=== PATIENT | male | born 1965 | race Caucasian/White ===

== ENCOUNTER → 2017-07-05 | Outpatient (REF) | payer OTHER | LOC: M SMT 13:11 | PROVIDERS: ATTEND Nurse Practitioner Women's Health | DX: N40.0 Benign prostatic hyperplasia without lower urinary tract symptoms (principal) ==

== ENCOUNTER 2018-10-27 12:35 | Emergency (ER) | payer OTHER ==
[~2018-10-27] VITALS: Ht 185.4 cm; Wt 109.1 kg
[2018-10-27] MEDS ORDERED: ATOR40TA75 (12:48)
[2018-10-27] MEDS ORDERED: LEVO175T2 (12:48)
[2018-10-27] MEDS ORDERED: TRES1INJ (12:48)
[2018-10-27] MEDS ORDERED: GABA-843 (12:48)
[2018-10-27] MEDS ORDERED: JARD1TAB3 (12:48)
[2018-10-27] MEDS ORDERED: ONDANSETRON 4MG/2ML VIAL (J2405) IV ONE (14:30)
[2018-10-27] MEDS ORDERED: NS 1,000 ML IV ONE (14:30)
[2018-10-27] MEDS ORDERED: KETOROLAC 30 MG/ML VIAL (J1885) IV ONE (14:30)
[2018-10-27 15:31] LABS: BASO % 0.8 % (0.0-1.0); EOS % 0.8 % (0.0-3.0); HEMATOCRIT 48.4 % (42.0-52.0); LYMPH # 0.8 10^3/uL (1.5-4.5); LYMPH % 16.5 % (24.0-44.0); MEAN CORPUSCULAR HEMOGLOBIN 29.1 pg (27.0-33.0); MEAN CORPUSCULAR HGB CONC 33.1 g/dl (32.0-36.5); MONO # 0.6 10^3/uL (0.0-0.8); NEUTROPHILS # 3.6 10^3/uL (1.8-7.7); NEUTROPHILS % 70.3 % (36.0-66.0); PLATELET COUNT, AUTOMATED 204 10^3/uL (150-450); WHITE BLOOD COUNT 5.1 10^3/uL (4.0-10.0)
[2018-10-27 15:50] LABS: ALBUMIN 3.7 GM/DL (3.2-5.2); ALT/SGPT 45 U/L (12-78); BILIRUBIN,DIRECT 0.2 MG/DL (0.0-0.2); BILIRUBIN,TOTAL 0.8 MG/DL (0.2-1.0); BLOOD UREA NITROGEN 15 MG/DL (7-18); CALCIUM LEVEL 8.2 MG/DL (8.5-10.1); CARBON DIOXIDE LEVEL 28 MEQ/L (21-32); CHLORIDE LEVEL 105 MEQ/L (98-107); GLOMERULAR FILTRATION RATE > 60.0 (>56); GLUCOSE, FASTING 202 MG/DL (70-100); LIPASE 70 U/L (73-393); POTASSIUM SERUM 4.3 MEQ/L (3.5-5.1); SODIUM LEVEL 138 MEQ/L (136-145); TOTAL PROTEIN 7.4 GM/DL (6.4-8.2)
[2018-10-27 15:58] LABS: INFLUENZA A AMPLIFICATION POSITIVE (NEGATIVE); INFLUENZA B AMPLIFICATION NEGATIVE (NEGATIVE)
[2018-10-27] MEDS ORDERED: LEVA750T7 PO (16:13)
[2018-10-27] MEDS ORDERED: OSEL75CA PO (16:13)
[2018-10-27] MEDS ORDERED: OSELTAMIVIR PHOSPHATE 75 MG CAP (TAMIFLU) PO ONE (16:15)
[2018-10-27] MEDS ORDERED: LevoFLOXacin 750 MG TABLET PO ONE (16:15)
[2018-10-27 16:19] VITALS: BP 119/74
--- NOTE | 2018-10-28 08:22 | REP ---
CHEST TWO VIEWS: Two views of the chest are performed. There appears to be mild streaky infiltrate in the lingula. The right lung is clear. Heart is normal in size. Mediastinal silhouette is unremarkable. IMPRESSION: Mild lingular infiltrate. Electronically Signed by Ike Church MD 10/28/2018 10:35 P
== END 2018-10-27 16:29 | disposition home or self-care (01) ==
LOC: M ED 12:35
DX: J09.X9 Influenza due to identified novel influenza A virus with other manifestations (principal); E11.9 Type 2 diabetes mellitus without complications; Z79.890 Hormone replacement therapy; Z79.899 Other long term (current) drug therapy
CPT/HCPCS: 71046; 80048; 80076; 81001; 83690; 85025; 87502; 96374; 96375; 99284; J1885; J2405

== ENCOUNTER 2019-03-13 17:21 | Emergency (ER) | payer OTHER ==
[~2019-03-13] VITALS: Ht 185.4 cm; Wt 109.1 kg
[~2019-03-13 17:21] MED LIST: ATOR40TA75; GABA-843; JARD1TAB3; LEVA750T7 PO; LEVO175T2; OSEL75CA PO; TRES1INJ
[2019-03-13] MEDS ORDERED: OMEP-221 PO (17:35)
[2019-03-13] MEDS ORDERED: VITA500045 PO (17:35)
[2019-03-13] MEDS ORDERED: ASPI-523 PO (17:35)
[2019-03-13] MEDS ORDERED: IBUPROFEN 600 MG TAB PO ONE (18:30)
[2019-03-13] MEDS ORDERED: ONDANSETRON 4 MG ORAL DISINTEGRATING TAB (Q0162 PER 1MG) PO ONE (18:30)
[2019-03-13] MEDS ORDERED: CYCL10TA PO (19:00)
[2019-03-13] MEDS ORDERED: IBUP-1022 PO (19:00)
[2019-03-13] MEDS ORDERED: CYCLOBENZAPRINE 10 MG TAB PO ONE (19:00)
--- NOTE | 2019-03-13 19:02 | REP ---
Clinical: Trauma. Technique: Axial noncontrast images through the thoracic spine with coronal and sagittal re-formations. Findings: Alignment and kyphosis maintained. No acute fracture / compression injury or subluxation. Posterior elements and spinous processes are intact. Spinal canal is patent. Mild multilevel degenerative age-related changes are noted including some minimal scattered spurring and endplate sclerosis. Paravertebral soft tissues are normal. Impression: Mild age-related changes No evidence for acute fracture / compression injury or pathology. Electronically Signed by Francois Mandujano MD 03/13/2019 06:53 P
--- NOTE | 2019-03-13 19:03 | REP ---
Clinical: Trauma. Technique: Axial noncontrast images from the skull base to the thoracic inlet with coronal and sagittal re-formations. Findings:Alignment and lordosis maintained. No acute fracture / compression injury or subluxation. Early moderate multilevel degenerative changes include mild osteophytosis, endplate sclerosis and disc space narrowing. Posterior elements and spinous processes are intact. Spinal canal is patent. Surrounding soft tissues are unremarkable. Impression:1. No acute fracture / compression injury or subluxation.2. Mild/moderate multilevel degenerative spondylosis. Electronically Signed by Francois Mandujano MD 03/13/2019 06:54 P
[2019-03-13 19:46] VITALS: BP 122/83
== END 2019-03-13 19:46 | disposition home or self-care (01) ==
LOC: M ED 17:21 → EDBD 17:21 → M ED 19:46
DX: S13.4XXA Sprain of ligaments of cervical spine, initial encounter (principal); V49.49XA Driver injured in collision with other motor vehicles in traffic accident, initial encounter; Y92.410 Unspecified street and highway as the place of occurrence of the external cause; M47.892 Other spondylosis, cervical region; E11.9 Type 2 diabetes mellitus without complications; E03.9 Hypothyroidism, unspecified; F41.9 Anxiety disorder, unspecified; E78.5 Hyperlipidemia, unspecified; G25.81 Restless legs syndrome; K21.9 Gastro-esophageal reflux disease without esophagitis; Z79.899 Other long term (current) drug therapy; Z79.4 Long term (current) use of insulin; Z88.8 Allergy status to other drugs, medicaments and biological substances
CPT/HCPCS: 72125; 72128; 99284; Q0162